=== PATIENT | male | born 1955 | race Caucasian/White ===

== ENCOUNTER 2022-06-24 06:19 | Day surgery (SDC) | payer OTHER ==
[2022-06-23 11:18] VITALS: BMI 21.1
[2022-06-24] MEDS ORDERED: EPINEPHrine/PF 1 MG/1 ML (1:1,000) AMPULE ONE (07:09)
[2022-06-24] MEDS ORDERED: ceFAZolin SODIUM 1 GM VIAL ONE ×3 (07:09→07:16)
[2022-06-24] MEDS ORDERED: TETRACAINE 0.5% OPHTH SOLN 2 ML BOTTLE ONE (07:09)
[2022-06-24] MEDS ORDERED: LIDOCAINE HCL 1%, 10 MG/ML (20ML VIAL) ONE (07:10)
[2022-06-24] MEDS ORDERED: BUPIVACAINE HCL 50 ML ONE (07:10)
[2022-06-24] MEDS ORDERED: PROPOFOL 40 ML ONE (07:16)
[2022-06-24] MEDS ORDERED: MIDAZOLAM HCL 2 MG/2 ML SINGLE DOSE VIAL ONE (07:16)
[2022-06-24] MEDS ORDERED: ERYTHROMYCIN 0.5% OPHTHALMIC OINTMENT 3.5 GM TUBE ONE (07:17)
[2022-06-24] MEDS ORDERED: POVIDONE-IODINE 5% OPHTHALMIC PREP 30 ML SOLUTION ONE (07:32)
[2022-06-24] MEDS ORDERED: ONDANSETRON 4 MG/2 ML VIAL ONE (08:11)
[2022-06-24] MEDS ORDERED: DEXAMETHASONE SOD PHOSPHATE 4 MG/1 ML VIAL ONE (08:11)
[2022-06-24] MEDS ORDERED: PROPOFOL 20 ML ONE (09:34)
[2022-06-24] MEDS ORDERED: ONDANSETRON 4 MG/2 ML VIAL IVPUSH PRN (10:15)
[2022-06-24] MEDS ORDERED: LACTATED RINGERS SOLUTION 1,000 ML IV SCH (10:15)
[2022-06-24] MEDS ORDERED: oxyCODONE HCL 5 MG TABLET PO PRN (10:15)
[2022-06-24 10:58] VITALS: RESP 18; TEMP 97.4
[2022-06-24] MEDS ORDERED: ACETAMINOPHEN 500 MG TABLET (FP) ONE (10:59)
[2022-06-24 11:15] VITALS: BP 125/76; PULSE 63
== END 2022-06-24 11:30 | disposition home or self-care (01) ==
LOC: FASU 06:19
PROVIDERS: ATTEND Ophthalmology
PROC: 08U007Z Supplement of Right Eye with Autologous Tissue Substitute, Open Approach (ICD-10-PCS; 2022-06-24)
PROC: 08SN0ZZ Reposition Right Upper Eyelid, Open Approach (ICD-10-PCS; principal; 2022-06-24 08:06)
DX: H02.89 Other specified disorders of eyelid (principal); C44.102 Unspecified malignant neoplasm of skin of right eyelid, including canthus; C44.1022 Unspecified malignant neoplasm of skin of right lower eyelid, including canthus
CPT/HCPCS: 94760

== ENCOUNTER 2022-08-05 06:04 | Day surgery (SDC) | payer OTHER, MEDICARE ==
[2022-07-31 14:50] VITALS: BMI 21.1
[2022-08-05] MEDS ORDERED: LIDOCAINE HCL 1%, 10 MG/ML (20ML VIAL) ONE (07:16)
[2022-08-05] MEDS ORDERED: BUPIVACAINE HCL 50 ML ONE (07:16)
[2022-08-05] MEDS ORDERED: POVIDONE-IODINE 5% OPHTHALMIC PREP 30 ML SOLUTION ONE (07:16)
[2022-08-05] MEDS ORDERED: EPINEPHrine/PF 1 MG/1 ML (1:1,000) AMPULE ONE (07:16)
[2022-08-05] MEDS ORDERED: TETRACAINE 0.5% OPHTH SOLN 2 ML BOTTLE ONE (07:16)
[2022-08-05] MEDS ORDERED: ERYTHROMYCIN 0.5% OPHTHALMIC OINTMENT 3.5 GM TUBE ONE (07:16)
[2022-08-05] MEDS ORDERED: ceFAZolin SODIUM 1 GM VIAL ONE (07:31)
[2022-08-05] MEDS ORDERED: MIDAZOLAM HCL 2 MG/2 ML SINGLE DOSE VIAL ONE (07:58)
[2022-08-05] MEDS ORDERED: PROPOFOL 40 ML ONE (08:05)
[2022-08-05] MEDS ORDERED: ROCURONIUM BROMIDE 50 MG/5 ML SYRINGE ONE (08:06)
[2022-08-05] MEDS ORDERED: oxyCODONE HCL 5 MG TABLET PO PRN (09:03)
[2022-08-05] MEDS ORDERED: ONDANSETRON 4 MG/2 ML VIAL IVPUSH PRN (09:03)
[2022-08-05] MEDS ORDERED: ACETAMINOPHEN 325 MG TABLET (FP) ONE (09:23)
[2022-08-05] MEDS: ACETAMINOPHEN 325 MG TABLET (FP) PO PRN ×2 (09:25→09:38)
[2022-08-05 09:46] VITALS: PULSE 66
[2022-08-05 10:01] VITALS: RESP 18; TEMP 97.8
[2022-08-05 10:17] VITALS: BP 110/70
== END 2022-08-05 10:19 | disposition home or self-care (01) ==
LOC: FASU 06:04
PROVIDERS: ATTEND Ophthalmology
PROC: 08SN0ZZ Reposition Right Upper Eyelid, Open Approach (ICD-10-PCS; 2022-08-05)
PROC: 08SQ0ZZ Reposition Right Lower Eyelid, Open Approach (ICD-10-PCS; principal; 2022-08-05 08:23)
DX: H02.521 Blepharophimosis right upper eyelid (principal); H02.5 Other disorders affecting eyelid function; Z98.890 Other specified postprocedural states
CPT/HCPCS: 36415; 87426; 94760